=== PATIENT | male | born 1960 | race Caucasian/White ===

== ENCOUNTER 2016-10-06 16:48 | Emergency (ER) | payer OTHER ==
[~2016-10-06 16:48] MED LIST: ALTACE10 MG PO; CIALIS20 MG PO; DEMADEX5 MG PO; GOOD SENSE ASPI81 M1 PO; LIPITOR 40MG TA40 MG PO; LORTAB 10/500 51 TA1 PO; OMNICEF 300MG300 MG PO; PLAVIX 75MG TAB75 MG PO; PRILOSEC 20MG20 MG PO; Patient's Own Medication PO; SEPTRA DS 8001 TAB PO; VYTORIN 10 MG-41 TAB PO
[2016-10-06 16:53] VITALS: BP 134/77
[2016-10-06] MEDS ORDERED: CEPHALEXIN500 M1 PO (17:53)
== END 2016-10-06 17:56 | disposition home or self-care (01) ==
LOC: ED 16:48
DX: S61.240A Puncture wound with foreign body of right index finger without damage to nail, initial encounter (principal); W45.8XXA Other foreign body or object entering through skin, initial encounter; Y93.89 Activity, other specified; Y92.828 Other wilderness area as the place of occurrence of the external cause
CPT/HCPCS: 90715

== ENCOUNTER → 2017-09-24 | Outpatient (CLI) | payer OTHER ==
[~2017-09-24] VITALS: Ht 185.4 cm; Wt 118.5 kg
[~2017-09-24] MED LIST changes: +CEPHALEXIN500 M1 PO
[2017-09-24 11:48] LABS: HEMATOCRIT 42.1 % (42.0-52.0); HEMOGLOBIN 14.4 g/dL (13.5-18.0); MEAN CELL VOLUME 85 fl (78-100); MEAN CORPUSCULAR HEMOGLOBIN 29 pg (27-31); MEAN CORPUSCULAR HGB CONC 34 g/dL (33-37); MEAN PLATELET VOLUME 9.9 fl (7.4-10.4); PLATELET COUNT 256 K/mm3 (130-400); RED BLOOD COUNT 4.96 M/mm3 (4.20-5.60); RED CELL DISTRIBUTION WIDTH 13.5 % (11.5-14.5)
[2017-09-24 12:01] LABS: ALBUMIN 4.1 g/dL (3.5-5.0); CALCIUM 8.7 mg/dL (8.4-10.2); TOTAL BILIRUBIN 0.7 mg/dL (0.2-1.3); TOTAL PROTEIN 7.2 g/dL (6.3-8.2)
[2017-09-24 12:09] LABS: LYMPHOCYTE 35 % (20-51); MONOCYTE 8 % (3-10); NEUTROPHILS 54 % (42-75)
[2017-09-24 12:27] VITALS: BP 134/72
== END ==
LOC: AMSURD 11:32
PROVIDERS: Nurse Practitioner Primary Care
DX: R07.9 Chest pain, unspecified (principal)

== ENCOUNTER → 2018-07-24 | Outpatient (CLI) | payer OTHER ==
[2017-09-24 12:27] VITALS: BP 134/72
[2018-07-24 13:54] LABS: BASO # 0.1 (0.02-0.10); EOS % 0.2 % (0.0-4.0); HEMATOCRIT 44.2 % (42.0-52.0); HEMOGLOBIN 15.1 g/dL (13.5-18.0); LYMPH# 2.2 (1.50-4.00); MEAN CELL VOLUME 85 fl (78-100); MEAN CORPUSCULAR HEMOGLOBIN 29 pg (27-31); MEAN CORPUSCULAR HGB CONC 34 g/dL (33-37); MEAN PLATELET VOLUME 10.5 fl (7.4-10.4); MONO # 0.7 (0.20-0.80); NEU # 5.6 (1.40-6.50); PLATELET COUNT 289 K/mm3 (130-400); RED BLOOD COUNT 5.23 M/mm3 (4.20-5.60); RED CELL DISTRIBUTION WIDTH 14.2 % (11.5-14.5); WHITE BLOOD COUNT 8.7 K/mm3 (4.8-10.8)
[2018-07-24 15:06] LABS: ERYTHROCYTE SEDIMENTATION RATE 5 mm/hr (0-20)
[2018-07-24 15:23] LABS: ALBUMIN 4.9 g/dL (3.5-5.0); CALCIUM 9.5 mg/dL (8.4-10.2); POTASSIUM 4.1 mmol/L (3.6-5.0)
== END ==
LOC: RAD 12:27
PROVIDERS: Internal Medicine
DX: M27.40 Unspecified cyst of jaw (principal); J01.01 Acute recurrent maxillary sinusitis; J06.9 Acute upper respiratory infection, unspecified

== ENCOUNTER → 2018-09-01 | Outpatient (CLI) | payer OTHER ==
[2017-09-24 12:27] VITALS: BP 134/72
== END ==
LOC: RAD 16:01
DX: M54.5 Low back pain (principal)

== ENCOUNTER → 2018-09-14 | Outpatient (CLI) | payer OTHER ==
[2017-09-24 12:27] VITALS: BP 134/72
== END ==
LOC: RAD 17:21
DX: M47.817 Spondylosis without myelopathy or radiculopathy, lumbosacral region (principal); M51.27 Other intervertebral disc displacement, lumbosacral region

== ENCOUNTER → 2018-10-26 | Outpatient (CLI) | payer OTHER ==
[2017-09-24 12:27] VITALS: BP 134/72
[2018-10-26 17:15] LABS: HEMATOCRIT 43.5 % (42.0-52.0); HEMOGLOBIN 14.5 g/dL (13.5-18.0); MEAN CELL VOLUME 85 fl (78-100); MEAN CORPUSCULAR HEMOGLOBIN 28 pg (27-31); MEAN CORPUSCULAR HGB CONC 33 g/dL (33-37); MEAN PLATELET VOLUME 10.3 fl (7.4-10.4); PLATELET COUNT 252 K/mm3 (130-400); RED BLOOD COUNT 5.13 M/mm3 (4.20-5.60); RED CELL DISTRIBUTION WIDTH 13.6 % (11.5-14.5); WHITE BLOOD COUNT 7.8 K/mm3 (4.8-10.8)
[2018-10-26 18:48] LABS: LYMPHOCYTE 38 % (20-51); MONOCYTE 12 % (3-10); NEUTROPHILS 46 % (42-75)
[2018-10-26 18:49] LABS: ERYTHROCYTE SEDIMENTATION RATE 16 mm/hr (0-20)
[2018-10-26 23:42] LABS: ALBUMIN 4.3 g/dL (3.5-5.0); CALCIUM 9.3 mg/dL (8.3-10.5); POTASSIUM 4.1 mmol/L (3.5-5.1); TOTAL BILIRUBIN 0.6 mg/dL (0.2-1.2)
== END ==
LOC: LAB 16:56
PROVIDERS: Internal Medicine
DX: Z00.00 Encounter for general adult medical examination without abnormal findings (principal); Z12.5 Encounter for screening for malignant neoplasm of prostate; Z12.11 Encounter for screening for malignant neoplasm of colon; J01.90 Acute sinusitis, unspecified

== ENCOUNTER → 2018-11-30 | Outpatient (CLI) | payer OTHER ==
[2017-09-24 12:27] VITALS: BP 134/72
[2018-11-30 23:37] LABS: FOLLICLE STIMULATING HORMONE 3.2 mIU/mL (1.0-12.0); LUTENIZING HORMONE 1.7 mIU/mL (0.6-12.1); PROLACTIN 5.1 ng/mL (3.5-19.4)
== END ==
LOC: LAB 08:27
PROVIDERS: Internal Medicine
DX: R79.89 Other specified abnormal findings of blood chemistry (principal)

== ENCOUNTER → 2019-12-02 | Outpatient (CLI) | payer OTHER ==
[2017-09-24 12:27] VITALS: BP 134/72
[2019-12-02 11:00] LABS: URINE APPEARANCE CLEAR; URINE BILIRUBIN NEGATIVE (NEGATIVE); URINE BLOOD NEGATIVE (NEGATIVE); URINE COLOR YELLOW; URINE GLUCOSE NEGATIVE (NEGATIVE); URINE KETONE NEGATIVE (NEGATIVE); URINE LEUKOCYTE ESTERASE TRACE (NEGATIVE); URINE MUCUS PRESENT (NOT PRESENT); URINE NITRATE NEGATIVE (NEGATIVE); URINE PROTEIN(semi-quant) TRACE mg/dL (NEGATIVE); URINE UROBILINOGEN NORMAL (NORMAL)
== END ==
LOC: LAB 10:38
PROVIDERS: Internal Medicine
DX: N30.00 Acute cystitis without hematuria (principal)

== ENCOUNTER → 2020-02-18 | Outpatient (CLI) | payer OTHER ==
[2017-09-24 12:27] VITALS: BP 134/72
[2020-02-18 08:46] LABS: BASO # 0.1 (0.02-0.10); EOS # 0.2 (0.04-0.40); EOS % 1.9 % (0.0-4.0); HEMATOCRIT 51.1 % (42.0-52.0); HEMOGLOBIN 16.9 g/dL (13.5-18.0); LYMPH# 2.2 (1.50-4.00); MEAN CELL VOLUME 85 fl (78-100); MEAN CORPUSCULAR HEMOGLOBIN 28 pg (27-31); MEAN CORPUSCULAR HGB CONC 33 g/dL (33-37); MEAN PLATELET VOLUME 10.2 fl (7.4-10.4); MONO # 0.9 (0.20-0.80); NEU # 5.1 (1.40-6.50); PLATELET COUNT 240 K/mm3 (130-400); RED BLOOD COUNT 6.03 M/mm3 (4.20-5.60); RED CELL DISTRIBUTION WIDTH 14.6 % (11.5-14.5); WHITE BLOOD COUNT 8.5 K/mm3 (4.8-10.8)
[2020-02-18 08:57] LABS: ALBUMIN 4.3 g/dL (3.4-4.8); POTASSIUM 4.4 mmol/L (3.5-5.1)
[2020-02-18 08:58] LABS: CALCIUM 9.2 mg/dL (8.3-10.5)
[2020-02-18 09:01] LABS: TOTAL BILIRUBIN 0.6 mg/dL (0.2-1.2)
[2020-02-18 09:48] LABS: ERYTHROCYTE SEDIMENTATION RATE 1 mm/hr (0-20)
== END ==
LOC: LAB 08:29
PROVIDERS: Internal Medicine
DX: Z00.00 Encounter for general adult medical examination without abnormal findings (principal); Z12.11 Encounter for screening for malignant neoplasm of colon; J01.90 Acute sinusitis, unspecified

== ENCOUNTER → 2020-05-22 | Outpatient (CLI) | payer OTHER ==
[2017-09-24 12:27] VITALS: BP 134/72
== END ==
LOC: LAB 10:24
DX: U07.1 COVID-19 (principal)

== ENCOUNTER → 2021-03-05 | Outpatient (CLI) | payer BC | LOC: AMSURD 15:25 | DX: R00.0 Tachycardia, unspecified (principal) ==

== ENCOUNTER → 2021-07-27 | Outpatient (CLI) | payer BC | LOC: LAB 11:51 | DX: J01.90 Acute sinusitis, unspecified (principal); R19.7 Diarrhea, unspecified; Z20.822 Contact with and (suspected) exposure to COVID-19 ==

== ENCOUNTER → 2021-09-12 | Outpatient (CLI) | payer BC ==
[2021-09-12 11:41] LABS: BASO # 0.07 K/mm3 (0.02-0.10); EOS # 0.19 K/mm3 (0.04-0.40); EOS % 2.4 % (0.0-4.0); HEMATOCRIT 52.4 % (42.0-52.0); HEMOGLOBIN 17.6 g/dL (13.5-18.0); LYMPH# 2.25 K/mm3 (1.50-4.00); MEAN CELL VOLUME 85 fl (78-100); MEAN CORPUSCULAR HEMOGLOBIN 29 pg (27-31); MEAN CORPUSCULAR HGB CONC 34 g/dL (33-37); MEAN PLATELET VOLUME 9.9 fl (7.4-10.4); MONO # 1.12 K/mm3 (0.20-0.80); NEU # 4.15 K/mm3 (1.40-6.50); PLATELET COUNT 236 K/mm3 (130-400); RED BLOOD COUNT 6.16 M/mm3 (4.20-5.60); RED CELL DISTRIBUTION WIDTH 13.4 % (11.5-14.5); WHITE BLOOD COUNT 7.8 K/mm3 (4.8-10.8)
[2021-09-12 11:45] LABS: ALBUMIN 4.2 g/dL (3.4-4.8); POTASSIUM 4.3 mmol/L (3.5-5.1)
[2021-09-12 11:46] LABS: CALCIUM 9.3 mg/dL (8.3-10.5)
[2021-09-12 11:48] LABS: TOTAL PROTEIN 7.1 g/dL (6.2-8.1)
[2021-09-12 11:49] LABS: TOTAL BILIRUBIN 1.3 mg/dL (0.2-1.2)
[2021-09-12 12:59] LABS: ERYTHROCYTE SEDIMENTATION RATE 2 mm/hr (0-20)
[2021-09-12 17:09] LABS: DIRECT BILIRUBIN 0.5 mg/dL (0.0-0.5)
== END ==
LOC: LAB 10:44
PROVIDERS: Family Medicine
DX: R10.9 Unspecified abdominal pain (principal); R19.7 Diarrhea, unspecified

== ENCOUNTER → 2021-09-13 | Outpatient (CLI) | payer BC | LOC: LAB 11:04 | DX: Z01.89 Encounter for other specified special examinations (principal) ==

== ENCOUNTER → 2021-09-17 | Outpatient (CLI) | payer BC | LOC: LAB 08:15 | DX: R19.7 Diarrhea, unspecified (principal); R10.9 Unspecified abdominal pain ==

== ENCOUNTER → 2022-08-27 | Outpatient (CLI) | payer BC | LOC: RAD 10:36 | DX: M19.012 Primary osteoarthritis, left shoulder (principal) ==

== ENCOUNTER → 2024-01-05 | Day surgery (SDC) | payer BC ==
[~2024-01-05] MED LIST changes: +Lidocaine PF 2% (20 MG/ML) 5 ML VIAL ONE
== END | disposition home or self-care (01) ==
LOC: MSO 07:06
DX: Z12.11 Encounter for screening for malignant neoplasm of colon (principal); K57.30 Diverticulosis of large intestine without perforation or abscess without bleeding; Z86.73 Personal history of transient ischemic attack (TIA), and cerebral infarction without residual deficits
CPT/HCPCS: 00812; J2704; J7120

== ENCOUNTER → 2024-06-04 | Outpatient (CLI) | payer BC ==
[~2024-06-04] MED LIST changes: -Lidocaine PF 2% (20 MG/ML) 5 ML VIAL ONE
== END ==
LOC: RAD 14:52
DX: M54.6 Pain in thoracic spine (principal)